=== PATIENT | male | born 1980 ===

== ENCOUNTER 2021-05-26 10:34 | Emergency (ER) | payer MEDICAID ==
[~2021-05-26] VITALS: Ht 160 cm; Wt 68.0 kg
[2021-05-26 11:07] LABS: BASOPHILS % 0.9 % (0.0-2.0); EOSINOPHILS % 3.3 % (0.0-5.0); HEMATOCRIT. 44.7 % (42.0-52.0); HEMOGLOBIN. 15.2 g/dL (14.0-18.0); LYMPHOCYTES % 23.5 % (20.0-50.0); MEAN CORPUSCULAR HEMOGLOBIN 28.9 pg (28.0-32.0); MEAN CORPUSCULAR VOLUME 85.2 fL (80.0-94.0); MEAN PLATELET VOLUME 6.8 fl (7.4-10.4); MONOCYTES % 7.3 % (2.0-8.0); PLATELET 349 x1000/uL (130-400); RED BLOOD CELL COUNT 5.25 mill/uL (4.7-6.1); RED CELL DISTRIBUTION WIDTH 13.2 % (11.6-14.6)
[2021-05-26 11:13] LABS: CHLORIDE 105 mEq/L (98-107)
[2021-05-26 14:32] VITALS: BP 109/76
== END 2021-05-26 14:11 | disposition home or self-care (01) ==
LOC: ER 10:34
DX: R51.9 Headache, unspecified (principal); I49.8 Other specified cardiac arrhythmias; Z98.890 Other specified postprocedural states
CPT/HCPCS: 36415; 71045; 72141; 80053; 82962; 83735; 84484; 85025; 93005; 99285